=== PATIENT | male | born 1935 | race Caucasian/White ===

== ENCOUNTER 2022-07-03 06:32 | Day surgery (SDC) | payer OTHER ==
[2022-06-26 14:50] LABS: BASOPHILS % (AUTO) 0.7 % (0-1); EOSINOPHILS # (AUTO) 0.2 X10'3 (0-0.9); EOSINOPHILS % (AUTO) 2.8 % (0-6); LYMPHOCYTES # (AUTO) 1.2 X10'3 (1.1-4.8); LYMPHOCYTES % (AUTO) 21.7 % (21-51); MEAN CORPUSCULAR HEMOGLOBIN 32.8 PG (27.0-31.0); MEAN CORPUSCULAR HGB CONC 33.6 g/dL (33.0-36.5); MEAN CORPUSCULAR VOLUME 97.5 FL (78-98); MEAN PLATELET VOLUME 8.3 FL (7.4-10.4); MONOCYTES # (AUTO) 0.5 X10'3 (0-0.9); MONOCYTES % (AUTO) 7.9 % (2-12); NEUTROPHILS # (AUTO) 3.8 X10'3 (1.8-7.7); NEUTROPHILS % (AUTO) 66.9 % (42-75); PRE OP HEMATOCRIT 41.9 % (42.0-52.0); PRE OP HEMOGLOBIN 14.1 g/dL (14.0-17.9); PRE OP PLATELET COUNT 212 X10'3 (140-440); RED CELL DISTRIBUTION WIDTH 13.6 % (11.5-14.5)
[2022-06-26 15:04] LABS: ALBUMIN 3.6 G/DL (3.4-5.0); ALBUMIN/GLOBULIN RATIO 1.3 (1.1-1.5); ALKALINE PHOSPHATASE 109 IU/L (46-116); BLOOD UREA NITROGEN 25 MG/DL (7-18); BUN/CREATININE RATIO 18.2 (5.4-32.0); CALCIUM 9.2 MG/DL (8.5-10.1); CHLORIDE 106 MMOL/L (99-107); CREATININE 1.37 MG/DL (0.60-1.10); PRE OP ALT 38 U/L (30-65); PRE OP ANION GAP 8 (8-16); PRE OP AST 31 U/L (10-37); PRE OP BILIRUB, TOTAL 0.5 MG/DL (0.0-1.0); PRE OP GLUCOSE 93 MG/DL (70-104); PRE OP POTASSIUM 4.2 MMOL/L (3.4-5.1); PRE OP SODIUM 142 MMOL/L (135-145); TOTAL CARBON DIOXIDE 28.5 MMOL/L (24-32); TOTAL PROTEIN 6.4 G/DL (6.4-8.2); eGFR 49 ML/MIN
[~2022-07-03] VITALS: Ht 177.8 cm; Wt 83.4 kg
[~2022-07-03 06:32] MED LIST: ASPI81TA52 PO; ATOR40TA72 PO; CALCIUM/D3; CITRUCEL; CLON-565 PO; FERR325T28 PO; LEVO88TA7 PO; MELA5TAB12 PO; MIDO2.5T14 PO; PANT40TA54 PO; PRAM0.5T12 PO; VITAMIN B-12; ceFAZolin inj. 2,000 MG in dextrose 5%-water 100 ML IV ONE; famotidine 20mg tablet PO ONE; ringers solution, lacted 1,000 ML IV SCH
[2022-07-03] MEDS ORDERED: LIDOCAINE 1%/EPI 1:100,000 inj. 10 ML multi-dose vial ONE (07:19)
[2022-07-03] MEDS ORDERED: TETRACAINE 0.5% 4 ML OPHTHALMIC DROPS ONE (07:19)
[2022-07-03] MEDS ORDERED: hydrALAZINE 20mg/ml inj. IV PRN (07:30)
[2022-07-03] MEDS ORDERED: morphine 4 MG/ML inj SYRINge IV PRN (07:30)
[2022-07-03] MEDS ORDERED: ondansetron/PF 4mg/2ml inj IV PRN (07:30)
[2022-07-03] MEDS ORDERED: fentaNYL/PF 50MCG/1 ML 2ML syringe IV PRN ×2 (07:30)
[2022-07-03] MEDS ORDERED: ringers solution, lacted 1,000 ML IV SCH (07:30)
[2022-07-03] MEDS ORDERED: morphine 2 MG/ML inj. syringe IV PRN (07:30)
[2022-07-03] MEDS ORDERED: labetalol 20mg/4ml (5mg/ml) syringe IV PRN (07:30)
[2022-07-03] MEDS ORDERED: midazolam 1 mg/ML 2ml injection ONE (08:38)
[2022-07-03] MEDS ORDERED: fentaNYL/PF 50MCG/1 ML 2ML syringe ONE (08:39)
[2022-07-03 09:50] VITALS: BP 165/84
--- NOTE | 2022-07-03 09:50 | NUR ---
Received from OR via [facility], accompanied by Anesthesiologist DAVID and report given by Anesthesiolgist. PT AWAKE AND ALERT, OXYGENATING WELL ON ROOM AIR. VSS. MOIST EYE PATCHES IN PLACE OVER EYES. INCISIONS TO UPPER LIDS WITH SUTURES, WELL APPROXIMATED. PT STATES MILD DISCOMFORT.
[2022-07-03 10:00] VITALS: BP 145/78
[2022-07-03 10:10] VITALS: BP 139/72
[2022-07-03 10:20] VITALS: BP 140/70
--- NOTE | 2022-07-03 10:30 | NUR ---
PT STABLE, MILD PAIN, NO NAUSEA. TOLERATING PO FLUIDS WELL. VSS. DC INSTRUCTIONS EXPLAINED TO PT AND HIS FAMILY, THEY VERBALIZED UNDERSTANDING. DCD IN STABLE CONDITION WITH DR SAEZ AFTERCARE INSTRUCTIONS. TAKEN TO CAR VIA WC.
[2022-07-03 17:11] VITALS: BP 132/88
[2022-07-03 17:12] VITALS: BP 132/88
== END 2022-07-03 10:30 | disposition home or self-care (01) ==
LOC: PAS 06:32
PROVIDERS: ATTEND Specialist
DX: H02.403 Unspecified ptosis of bilateral eyelids (principal); E03.9 Hypothyroidism, unspecified; E78.5 Hyperlipidemia, unspecified; G47.30 Sleep apnea, unspecified; K21.9 Gastro-esophageal reflux disease without esophagitis; Z79.899 Other long term (current) drug therapy; Z90.49 Acquired absence of other specified parts of digestive tract; Z95.1 Presence of aortocoronary bypass graft; Z98.890 Other specified postprocedural states
CPT/HCPCS: 36415; 67904; 80053; 82948; 85025; J0690; J2250; J3010; J3490; J7030; J7060; J7120; Z7506; Z7508; Z7512; 88305; 88311; A4215; A4618; A6410; A7000